=== PATIENT | female | born 1970 | race Caucasian/White ===

== ENCOUNTER 2016-09-01 09:14 | Emergency (ER) | payer OTHER ==
--- NOTE | ~2016-09-01 | CR281 ---
[facility]. [facility] A Service of [facility] & [facility] RADIOLOGY TEXT RESULTS PATIENT: MILLY MIKE LOCATION: SED : 74 UNIT #: [id number] AGE: [address]: Keith Levine MD SEX: F ORDER DR: [id number] [place] [id number] E MR#: [id number] Acc #: [id number] NAME: MILLY MIKE : 1970 SEX: F STUDY DATE/TIME: 09/01/2016 9:27 UNIT: SED ROOM: STUDY DESCRIPTION: CR Wrist Min 3 View Lt Attending Physician: Keith Levine M.D. Ordering Physician: Keith Levine M.D. Primary Care Physician: Marsha Steven M.D. MEDICAL IMAGING REPORT This report is preliminary unless electronic signature is present. EXAM Left wrist 3 views INDICATION Left wrist pain and swelling since yesterday. COMPARISON 03/17/2016 FINDINGS There is no fracture. There is some soft tissue swelling about the wrist. The carpal alignment is maintained. IMPRESSION Soft tissue swelling about the wrist, but no evidence for fracture. Dictated by... Dino Garcia M.D. THIS IS AN ELECTRONICALLY VERIFIED REPORT Dino Garcia M.D. at 09/02/2016 7:35 AM VITA/fidencio TD: 09/01/2016 10:18 JOB #: [id number] MEDICAL IMAGING REPORT Page 1 of 1
--- NOTE | ~2016-09-01 | CR21 ---
[facility]. [facility] A Service of [facility] & [facility] RADIOLOGY TEXT RESULTS PATIENT: MILLY MIKE LOCATION: SED : 74 UNIT #: [id number] AGE: [address]: Keith Levine MD SEX: F ORDER DR: [id number] [place] [id number] E MR#: [id number] Acc #: [id number] NAME: MILLY MIKE : 1970 SEX: F STUDY DATE/TIME: 09/01/2016 9:27 UNIT: SED ROOM: STUDY DESCRIPTION: CR Ankle Min 3 Views Rt Attending Physician: Keith Levine M.D. Ordering Physician: Keith Levine M.D. Primary Care Physician: Marsha Steven M.D. MEDICAL IMAGING REPORT This report is preliminary unless electronic signature is present. EXAM Right ankle 3 views INDICATION Right ankle pain and swelling since yesterday after falling. COMPARISON No comparisons. FINDINGS There is no soft tissue swelling. The ankle mortise is intact. There is no fracture. Minimal calcaneal spurring. IMPRESSION No acute finding. Dictated by... Dino Garcia M.D. THIS IS AN ELECTRONICALLY VERIFIED REPORT Dino Garcia M.D. at 09/02/2016 7:35 AM VITA/fidencio TD: 09/01/2016 10:19 JOB #: [id number] MEDICAL IMAGING REPORT Page 1 of 1
[~2016-09-01 09:14] MED LIST: ALBUTEROL17 GM INH; AUGMENTIN; BACTRIM DS TABL1 TA1 PO; BACTRIM DS TABL1 TA2 PO; BACTROBAN22 GM EXT; BENZONATATE PO; BROMPHED PO; DIFLUCAN PO; FLEXERIL10 MG; FLUCONAZOLE150 M1 PO; HYDROCODON-ACE1 EA11; HYDROCODONE-APA1 T30 PO; IBUPROFEN800 MG PO; KEFLEX250 MG/5 M PO; KETOPROFEN PO; LEVOTHROID150 MCG PO; LORTAB 7.51 TAB; METRONIDAZOLE; METRONIDAZOLE PO; MOBIC PO; MOTRIN400 M1; NAPROXEN PO; NEURONTIN300 MG PO; NO MEDICATIONS; NORCO1 TAB 10/3 DOB; OMNICEF300 MG PO; PAXIL PO; PREDNISONE PO; PYRIDIUM PO; ROBAXIN500 MG PO; STOOL SOFTENER100 M1; SYNTHROID125; TIZANIDINE HCL2 M1; TRAZODONE PO; VOLTAREN50 MG PO; ZOFRAN ODT4 MG SL; [UNRECOGNIZED DRUG - OTHER] PO
[2016-09-01] MEDS ORDERED: NO MEDICATIONS (09:17)
== END 2016-09-01 10:00 | disposition home or self-care (01) ==
LOC: SED 09:14
DX: S96.911A Strain of unspecified muscle and tendon at ankle and foot level, right foot, initial encounter (principal); S66.912A Strain of unspecified muscle, fascia and tendon at wrist and hand level, left hand, initial encounter; F17.210 Nicotine dependence, cigarettes, uncomplicated; Z91.012 Allergy to eggs; Z91.040 Latex allergy status; Z91.018 Allergy to other foods; W01.0XXA Fall on same level from slipping, tripping and stumbling without subsequent striking against object, initial encounter
CPT/HCPCS: 73110; 73610; 99284